=== PATIENT | female | born 1940 | race Caucasian/White ===

== ENCOUNTER 2017-08-14 14:46 | Outpatient (CLI) | payer MEDICARE | END 2017-08-14 14:47 | disposition home or self-care (01) | LOC: BICMAMMO 14:46 | PROVIDERS: ATTEND Family Medicine | DX: N64.4 Mastodynia (principal); Z85.828 Personal history of other malignant neoplasm of skin | CPT/HCPCS: 77066; G0279 ==

== ENCOUNTER 2018-04-26 07:35 | Outpatient (CLI) | payer MEDICARE ==
--- NOTE | 2018-04-26 09:31 | CT ---
LUMBAR SPINE CT WITHOUT CONTRAST: DATE: 04/26/2018. COMPARISON: 01/25/2014. HISTORY: Low back pain, history of scoliosis and multiple lumbar spine surgeries. TECHNIQUE: Axial CT imaging at 3 mm intervals through the lumbar spine without contrast. Coronal and sagittal r eformatted imaging obtained. FINDINGS: Evaluation for central canal and/or neural foraminal stenosis is limited on routine CT examination. There is a moderate degree of degenerative levoscoliosis of the lumbar spine centered at the L4 level . Of note, there appear to be 6 [id number] lumbar-type vertebral bodies. T12-L1: There is left lateral osteophyte formation and mild bilateral facet hypertrophy. There is n o osseous cause of significant central canal or neural foraminal stenosis. L1-2: There is disk space narrowing with left lateral osteophyte formation. No osseous cause of sig nificant central canal or neural foraminal stenosis. L2-3: Bilateral facet hypertrophy. Left lateral osteophyte formation and mild bilateral facet hyper trophy. No osseous cause of significant central canal or neural foraminal stenosis. Anterior osteop hyte formation noted. L3-4: There is disk space narrowing and vacuum disk formation with posterior osteophyte. There is s ignificant bilateral facet hypertrophy. The patient appears status post facetectomy on the left. Th ere is probable mild left and moderate right neural foraminal stenosis and at least mild central gagandeep l stenosis. L4-5: There is disk space narrowing and degenerative end plate change with right lateral osteophyte formation as well as posterior osteophyte. There is at least mild central canal stenosis. Significa nt bilateral facet hypertrophy with osteophyte extension into the neural foramina noted bilaterally. This causes moderate/severe right-sided neural foraminal stenosis and mild left neural foraminal marcelo nosis. L5-6: Complete loss of intervertebral disk space height with degenerative end plate change and vacuu m disk formation. Prominent bilateral facet hypertrophy with extension of osteophytes into the neura l foramina with moderate/severe central canal stenosis, right greater than left. There is a focus of gas within the neural foramen on the right, likely associated with a small superimposed disk protrus ion further worsening the right neural foraminal stenosis. L6-S1: Mild bilateral facet hypertrophy. No osseous cause of significant central canal stenosis. P robable mild bilateral neural foraminal stenosis. When compared to the prior study performed 01/25/2014, the above-described findings appear similar. Imaged retroperitoneal structures are grossly unremarkable. No acute fracture or dislocation. There is no worrisome lytic or blastic bone lesion. IMPRESSION: Prominent multilevel degenerative change noted within the lumbar spine as detailed above. POS: [facility]
--- NOTE | 2018-04-26 10:08 | MRI ---
CERVICAL SPINE MRI WITHOUT COTNRAST: DATE: 04/26/2018. HISTORY: A 77-year-old female with cervical radiculopathy, left upper extremity radiculopathy with shoulder pa in. TECHNIQUE: Multiplanar, multisequence MR imaging of the cervical spine provided without contrast. FINDINGS: There is a 2.9 cm T2 hyperintense round lesion on the left in the region of the thyroid gland, only p artially imaged on this examination. Thyroid nodule suspected. Further assessment with thyroid ultr asound advised. There is no focal area of osseous marrow edema noted on the sagittal STIR imaging. There is moderate degenerative change at the atlantoaxial interspace. C2-3: Facet and uncovertebral osteophyte formation noted, primarily left-sided, with a mild degree o f left-sided neural foraminal stenosis. No significant central canal or neural foraminal stenosis. C3-4: There is disk space narrowing, disk desiccation, and mild disk bulge with partial effacement o f the ventral thecal sac. There is bilateral facet and uncovertebral osteophyte formation, left grea ter than right. There is mild central canal stenosis. There is moderate left neural foraminal steno sis. No significant right neural foraminal stenosis. C4-5: Disk space narrowing, disk desiccation, and disk bulge with effacement of the ventral thecal s ac and mild central canal stenosis. Bilateral facet and uncovertebral osteophyte formation, left gre ater than right. Mild left neural foraminal stenosis. No significant right neural foraminal stenosi s. C5-6: Disk space narrowing, disk desiccation, and disk-osteophyte complex effacing the ventral theca l sac and abutting the ventral aspect of the cord with moderate/severe central canal stenosis. There is anterior osteophyte formation as well as bilateral facet and uncovertebral osteophyte formation w ith neural foraminal extension. Severe right and moderate left neural foraminal stenosis noted. C6-7: There is disk space narrowing, disk desiccation, and disk bulge with partial effacement of samia tral thecal sac and mild central canal stenosis. Facet and uncovertebral osteophyte formation noted bilaterally, left greater than right. Mild/moderate bilateral neural foraminal stenosis, left greate r than right. C7-T1: Disk desiccation and disk space narrowing. No central canal or neural foraminal stenosis. M ild bilateral facet hypertrophy. No focal area of abnormal signal intensity is identified within the cervical cord. IMPRESSION: 1. Multilevel degenerative change noted within the cervical spine, most prominent at C5-6 as detaile d above. 2. T2 hyperintense lesion in the region of the left thyroid lobe measuring up to 2.9 cm. Dedicated thyroid ultrasound advised. POS: [facility]
== END 2018-04-26 07:36 | disposition home or self-care (01) ==
LOC: TBSIIMAG 07:35
PROVIDERS: ATTEND Neurological Surgery
DX: M47.22 Other spondylosis with radiculopathy, cervical region (principal); M54.5 Low back pain; M47.816 Spondylosis without myelopathy or radiculopathy, lumbar region; E07.9 Disorder of thyroid, unspecified
CPT/HCPCS: 72131; 72141

== ENCOUNTER 2018-05-14 15:39 | Outpatient (CLI) | payer MEDICARE ==
--- NOTE | 2018-05-14 16:02 | RAD ---
RIGHT HIP TWO VIEWS: History: Right sided hip pain. FINDINGS/IMPRESSION: Mild degenerative changes are present. No fracture, dislocation, or bony destruction is identified. POS: [facility]
== END 2018-05-14 15:40 | disposition home or self-care (01) ==
LOC: BICRAD 15:39
PROVIDERS: ATTEND Nurse Practitioner Family
DX: R10.31 Right lower quadrant pain (principal); M16.11 Unilateral primary osteoarthritis, right hip

== ENCOUNTER 2018-06-18 09:55 | Outpatient (CLI) | payer MEDICARE ==
--- NOTE | 2018-06-18 11:24 | RAD ---
Upper GI air contrast HISTORY: Morbid obesity. FINDINGS: Small sliding hiatal hernia with small amount of gastroesophageal reflux. No mass or obstru ction. Small a mount of well-contained contrast projects medially from the second portion of the duodenum. IMPRESSION: Small hiatal hernia. Small amount of gastroesophageal reflux. Small diverticulum second portion duodenum.
== END 2018-06-18 09:56 | disposition home or self-care (01) ==
LOC: RAD 09:55
PROVIDERS: ATTEND Specialist
DX: E66.01 Morbid (severe) obesity due to excess calories (principal); K44.9 Diaphragmatic hernia without obstruction or gangrene; K21.9 Gastro-esophageal reflux disease without esophagitis
CPT/HCPCS: 74241

== ENCOUNTER 2018-06-26 13:55 | Outpatient (CLI) | payer MEDICARE | END 2018-06-26 13:56 | disposition home or self-care (01) | LOC: DTY/OP 13:55 | PROVIDERS: ATTEND Specialist | DX: Z01.818 Encounter for other preprocedural examination (principal); E66.01 Morbid (severe) obesity due to excess calories | CPT/HCPCS: 97802 ==

== ENCOUNTER 2018-10-03 13:35 | Outpatient (CLI) | payer MEDICARE ==
[~2018-10-03 13:35] MED LIST: Iopamidol 300 61% 100 ML VIAL FS ONE
[2018-10-03 15:35] LABS: #Basophils 0.1 thou/uL (0.0-0.2); #Eosinphils 0.2 thou/uL (0.0-0.7); #Lymphocytes 4.1 thou/uL (1.20-3.40); #Monocytes 0.5 thou/uL (0.11-0.59); %Eosinophils 1.8 % (0.0-10.0); %Lymphocytes 42.1 % (21.0-51.0); %Monocytes 4.7 % (0.0-10.0); %Neutrophils 50.4 % (42.0-75.0); Hemoglobin 13.4 g/dL (12.0-16.0); Mean Corpuscular HGB CONC 32.3 g/dL (32.0-36.0); Mean Corpuscular Hemoglobin 29.1 pg (27.0-31.0); Mean Corpuscular Volume 89.9 fL (78.0-98.0); Mean Platelet Volume 6.7 fL (7.4-10.4); Platelet Count 303 thou/uL (130-400); RBC Distribution Width 13.9 % (11.5-14.5); Red Blood Cell (RBC) Count 4.59 mill/uL (4.20-5.40); White Blood Cell (WBC) Count 9.8 thou/uL (4.8-10.8)
[2018-10-03 15:55] LABS: ALT (SGPT) 20 U/L (8-55); AST (SGOT) 32 U/L (5-34); Albumin 4.1 g/dL (3.4-4.8); Alkaline Phosphatase 114 U/L (40-150); Anion Gap 16 mmol/L (10-20); BUN (Urea Nitrogen) 20 mg/dL (9.8-20.1); Bilirubin, Total 0.5 mg/dL (0.2-1.2); Calc. Creatinine Clearance 0 mL/min (70-130); Calcium 10.2 mg/dL (7.8-10.44); Carbon Dioxide 26 mmol/L (23-31); Chloride 104 mmol/L (98-107); Estimated GFR-MDRD 35; Globulin 4.2 g/dL (2.4-3.5); Glucose 83 mg/dL (83-110); Protein, Total 8.3 g/dL (6.0-8.3); Sodium 141 mmol/L (136-145)
--- NOTE | 2018-10-03 17:54 | CT ---
CT ABDOMEN AND PELVIS WITH IV CONTRAST: 10/03/18 HISTORY: Coccydynia. History of prior left hip surgery. COMPARISON: CT pelvis on 08/19/15. FINDINGS: There is mild bibasilar atelectasis present. Vascular calcifications are seen in the visualized coronary arteries with minimal vascular calcificat ions in the abdominal aorta. The liver, spleen, pancreas, bilateral adrenal glands, and right kidney demonstrate a normal sonograp hic appearance. A subcentimeter too small to characterize hypodense lesion is seen in the superior po le left kidney. There is no hydronephrosis present bilaterally. The urinary bladder is decompressed and not well evaluated especially given streak artifact from the left total hip prosthesis limiting adequate evaluation. Loops of small bowel are normal in caliber. Small amount of retained fecal material is seen throughout the colon with a few scattered colonic div erticula seen. The uterus is not visualized likely related to prior hysterectomy. No free fluid, fluid collection, or lymphadenopathy is seen in the abdomen or pelvis. Multilevel degenerative changes are seen in the lower thoracic as well as involving the lumbar spine. There is left convexed scoliosis of the lumbar spine. No fracture is seen. Specifically, there is no fracture seen associated with the sacrum or coccyx, and no soft tissue lesion is seen associated wit h the coccyx and there is no adjacent inflammatory stranding or fluid. IMPRESSION: 1. No acute findings are seen in the abdomen or pelvis. 2. Subcentimeter too small to characterize hypodense lesion left kidney. 3. Hysterectomy. 4. Colonic diverticulosis. Small amount of retained fecal material seen throughout the colon. 5. Degenerative changes in the spine with left convexed scoliosis. POS: [facility]
== END 2018-10-03 13:36 | disposition home or self-care (01) ==
LOC: SCSCT 13:35
PROVIDERS: ATTEND Physician Assistant
DX: R10.32 Left lower quadrant pain (principal); N28.9 Disorder of kidney and ureter, unspecified; K57.30 Diverticulosis of large intestine without perforation or abscess without bleeding; M47.814 Spondylosis without myelopathy or radiculopathy, thoracic region; M47.816 Spondylosis without myelopathy or radiculopathy, lumbar region; M41.9 Scoliosis, unspecified; Z90.710 Acquired absence of both cervix and uterus
CPT/HCPCS: 36415; 74177; 80053; 85025; Q9967

== ENCOUNTER 2020-09-28 08:37 | Outpatient (CLI) | payer MEDICARE | END 2020-09-28 08:38 | disposition home or self-care (01) | LOC: MRI 08:37 | PROVIDERS: ATTEND Neurological Surgery | DX: M47.26 Other spondylosis with radiculopathy, lumbar region (principal); M41.86 Other forms of scoliosis, lumbar region; M51.16 Intervertebral disc disorders with radiculopathy, lumbar region; M48.061 Spinal stenosis, lumbar region without neurogenic claudication | CPT/HCPCS: 72158; 82565 ==